=== PATIENT | male | born 1955 | race Caucasian/White ===

== ENCOUNTER 2024-12-15 16:01 | Emergency (ER) | payer OTHER, SELFPAY ==
--- NOTE | 2024-12-15 16:47 | ED.GENMED ---
ED Provider Triage
<Alicia Murray PA-C - Last Filed: 12/15/24 16:48>
-
Patient seen by provider in Triage?: Seen in Triage
69-year-old male history of MS in remission, hypertension, hyperlipidemia presents for URI symptoms with a cough, not feeling well for the last 4 days. Started while patient was in [place], he went to urgent care, had a negative chest x-ray and
negative flu and COVID test. That evening he flew home and over night he had nausea vomiting and diarrhea. He has continued to have episodes of diarrhea since then and cannot keep anything in, when he drinks liquids it comes out about 5 minutes
later as diarrhea. Patient is having some pain in his right abdomen with a cough, his cough is significantly worse than it was, he saw his family doctor and was sent over to evaluate for pneumonia. Patient has not been on antibiotics recently or
had a history of C. difficile. He has not had a fever but he has felt a little confused
A medical screening examination has been initiated by a qualified medical provider. Based on the assessment performed at this time, it has been determined that an emergent medical condition may exist and the patient has been informed that further
medical evaluation and possible additional diagnostic testing may be needed.
HPI: This is a medical evaluation conducted in person to initiate diagnostic evaluation and provide initial therapeutics. Please see further documentation by the treating clinician.
GENERAL: Alert , in no apparent distress
ENT: No visible abnormalities
LUNGS: No acute respiratory distress, spastic cough, end expiratory wheezing with the cough, prolonged expiration, no respiratory distress
NEUROLOGICAL: Alert and oriented
SKIN: Skin intact. No visible changes.
MUSCULOSKELETAL: Moving extremities normally
PSYCH: Normal and appropriate interaction.
History of Present Illness
<Alicia Murray PA-C - Last Filed: 12/15/24 16:48>
General
Chief Complaint: Cough
Time Seen by Provider: 12/15/24 18:48
<Yudi Flores DO - Last Filed: 12/16/24 03:11>
History of Present Illness
History of Present Illness:
69-year-old male history of MS in remission, CAD, hypertension, hyperlipidemia presenting with productive cough, shortness of breath, nausea, vomiting, diarrhea for the past few days. Patient states that he initially started having cough on Thursday
12/11. Patient states he was seen in urgent care we had negative chest x-ray, COVID, and flu. Patient states that he was in [place] at the time and came back to [place] Tuesday 12/12. Patient states that Thursday night developed nausea, vomiting
and diarrhea. Patient denies fever or chest pain. Patient states that his partner has now developed a cough. Patient states that he had a home flu test yesterday that was positive. Patient denies any lung issues. Patient states that he was seen
by his PCP today who recommended come to the emergency department rule out dehydration.
Past History
<Alicia Murray PA-C - Last Filed: 12/15/24 16:48>
Past History
ED Past Medical History: CAD, HTN and Other (Multiple Sclerosis)
ED Past Surgical History: None, Appendectomy, Cardiac (stents X 2) and Other (Nasal surgery, Left vein stripping)
Social History
Tobacco: Non-smoker
Alcohol: Daily (Wine 2 glasses)
Drug: None
Personal: Single
Living: alone
Phy Exam
<Yudi Flores DO - Last Filed: 12/16/24 03:11>
Physical Exam
Physical Exam:
General: Alert, no acute distress
Head: NCAT
Eyes: clear conjunctiva
Neck: supple
Cardiac: regular rate and rhythm, no murmur
Lungs: clear to auscultation bilaterally. No wheezes, rales, or rhonchi. Speaking full unlabored sentences. No respiratory distress.
Abdomen: soft, nondistended nontender. No rebound or guarding.
MSK: no lower extremity edema bilaterally. No deformity
Skin: warm, dry
Neuro: Alert and oriented x3. no focal deficits
Course
<Alicia Murray PA-C - Last Filed: 12/15/24 16:48>
Orders/Labs/Results
Orders:
Orders
12/15/24 16:45
CR Chest - 2 Views Urgent
Comment:
Reason For Exam: cough
12/15/24 16:46
Electrocardiogram (*1) Urgent
Reason for Study: Fatigue / Weakness
EKG- Treatment ONCE
12/15/24 17:02
Complete Blood Count/With Diff Urgent
Comprehensive Metabolic Panel Urgent
Direct Bilirubin Urgent
Comment: ADD ON
Lipase Urgent
Magnesium Urgent
12/15/24 18:48
Add On- LAB Urgent
Tests Added?: direct biliruibn
12/15/24 20:02
COVID-19 Antigen Urgent
Source: Nasal Swab
Influenza A+B Rapid Molecular Urgent
LUIS EDUARDO Source: Nasal Swab
Specimen Description:
12/15/24 20:28
0.9% Sodium Chloride 1000 ml [Nss] 1,000 ml IV BOLUS
Ondansetron Injectable [Zofran] 4 mg IV NOW STA
Abnormal Lab Results
12/15/24
17:02
MCV 94.8 H fL
(80.0-94.0)
MCH 33.3 H pg
(27.0-31.0)
Absolute Lymphs (auto) 0.9 L 10^3/uL
(1.2-3.4)
Absolute Monos (auto) 0.9 H 10^3/uL
(0.1-0.6)
Neutrophils % 76.4 H %
(42.2-75.2)
Lymphocytes % 11.9 L %
(20.5-51.1)
Monocytes % 11.2 H %
(1.7-9.3)
Sodium 130 L mmol/L
(135-145)
Potassium 3.4 L mmol/L
(3.5-5.1)
Chloride 93 L mmol/L
(98-107)
BUN 35 H mg/dl
(9-20)
Creatinine 1.4 H mg/dL
(0.7-1.3)
Glucose 115 H mg/dl
(70-99)
Total Bilirubin 1.7 H mg/dl
(0.2-1.3)
12/15/24 17:02
12/15/24 17:02
Vital Signs
Initial and Last Documented VS:
Initial Vital Signs
Temp Pulse Resp Pulse Ox
98.4 F 89 20 95
12/15/24 16:42 12/15/24 16:42 12/15/24 16:42 12/15/24 16:42
Last Documented Vital Signs
Temp Pulse Resp BP Pulse Ox
98.8 F 78 17 112/71 94
12/15/24 20:05 12/15/24 23:17 12/15/24 23:17 12/15/24 23:17 12/15/24 23:17
<Yudi Flores, DO - Last Filed: 12/16/24 03:11>
Orders/Labs/Results
Orders:
Orders
12/15/24 16:45
CR Chest - 2 Views Urgent
Comment:
Reason For Exam: cough
12/15/24 16:46
Electrocardiogram (*1) Urgent
Reason for Study: Fatigue / Weakness
EKG- Treatment ONCE
12/15/24 17:02
Complete Blood Count/With Diff Urgent
Comprehensive Metabolic Panel Urgent
Direct Bilirubin Urgent
Comment: ADD ON
Lipase Urgent
Magnesium Urgent
12/15/24 18:48
Add On- LAB Urgent
Tests Added?: direct biliruibn
12/15/24 20:02
COVID-19 Antigen Urgent
Source: Nasal Swab
Influenza A+B Rapid Molecular Urgent
LUIS EDUARDO Source: Nasal Swab
Specimen Description:
12/15/24 20:28
0.9% Sodium Chloride 1000 ml [Nss] 1,000 ml IV BOLUS
Ondansetron Injectable [Zofran] 4 mg IV NOW STA
Abnormal Lab Results
12/15/24
17:02
MCV 94.8 H fL
(80.0-94.0)
MCH 33.3 H pg
(27.0-31.0)
Absolute Lymphs (auto) 0.9 L 10^3/uL
(1.2-3.4)
Absolute Monos (auto) 0.9 H 10^3/uL
(0.1-0.6)
Neutrophils % 76.4 H %
(42.2-75.2)
Lymphocytes % 11.9 L %
(20.5-51.1)
Monocytes % 11.2 H %
(1.7-9.3)
Sodium 130 L mmol/L
(135-145)
Potassium 3.4 L mmol/L
(3.5-5.1)
Chloride 93 L mmol/L
(98-107)
BUN 35 H mg/dl
(9-20)
Creatinine 1.4 H mg/dL
(0.7-1.3)
Glucose 115 H mg/dl
(70-99)
Total Bilirubin 1.7 H mg/dl
(0.2-1.3)
12/15/24 17:02
12/15/24 17:02
Vital Signs
Initial and Last Documented VS:
Initial Vital Signs
Temp Pulse Resp Pulse Ox
98.4 F 89 20 95
02/27/25 16:42 12/15/24 16:42 12/15/24 16:42 12/15/24 16:42
Last Documented Vital Signs
Temp Pulse Resp BP Pulse Ox
98.8 F 78 17 112/71 94
12/15/24 20:05 12/15/24 23:17 12/15/24 23:17 12/15/24 23:17 12/15/24 23:17
<Yudi Flores DO - Last Filed: 12/16/24 03:11>
MDM/Problems Addressed
Differential Diagnosis Includes:
Pneumonia, viral infection, STEFANY, electrolyte abnormality, norovirus, C. difficile
MDM/Problems Addressed:
Results reviewed. WBC 7.8. Creatinine 1.4 (baseline 1), hyponatremia at 130 suspect due to poor p.o. intake. Chest x-ray clear with no focal infiltrate or consolidation. Influenza a positive. EKG shows sinus rhythm at 84 bpm with [place] 154 QTc 465
no acute ischemic changes. Discussed results with patient at bedside. SpO2 within normal limits. Stable for discharge home with PCP follow-up. Will not prescribe Tamiflu given patient already has nausea/vomiting/diarrhea, symptoms onset >48
hours ago.
ED Attending Note
<Alicia Murray PA-C - Last Filed: 12/15/24 16:48>
-
Portions of this chart may have been created with voice recognition software.� Occasional wrong word or��sound alike� substitutions may have occurred due to the inherent limitations of voice recognition software.
Discharge Plan
Departure
Patient Disposition: Home (Routine Discharge)
Date of Disposition: 12/15/24
Time of Disposition: 23:07
Patient with high blood pressure during this ER visit?: No
Discharge Problem:
Influenza
Instructions: Dehydration, Adult (DC), Flu in adults - Discharge instructions
Prescriptions:
New
ondansetron 4 mg tablet,disintegrating
4 mg PO Q8H PRN (Reason: nausea and vomiting) 5 Days Qty: 14 0RF
No Action
atorvastatin 80 MG tablet
80 mg PO QPM
metoprolol tartrate 50 MG tablet
50 mg PO HS
aspirin 81 MG tablet,chewable
81 mg PO DAILY
zolpidem 5 MG tablet
5 mg PO HSPRN PRN (Reason: insomina)
olmesartan [Benicar] 40 MG tablet
40 mg PO BID
ticagrelor [Brilinta] 90 MG tablet
90 mg PO BID
Referrals:
Neetu Mejia [Other]
Jonnathan Hummel PA-C [Family Provider] -
Activity Restrictions/Additional Instructions:
Follow-up with primary care doctor in 1 to 2 days
Take Zofran as needed for vomiting
Return to the emergency department for chest pain, difficulty breathing or new/worse symptoms
Interventions
Interventions:
*Risk Screen - Suicide Last Done: 12/15/24 16:42
*General Assessment Last Done: 12/15/24 19:52
*Neglect/Abuse Screening Last Done: 12/15/24 16:42
ED- Fall Risk Assessment Last Done: 12/15/24 19:52
*ED COVID-19 Vaccine History Last Done: 12/15/24 16:42
*Nursing Disposition Last Done: 12/15/24 23:36
YB-Uovkhw-Rstzkposrv Assessment Last Done: 12/15/24 19:52
ED- Pulmonary Assessment Last Done: 12/15/24 19:52
Discharge Date and Time
Discharge Date/Time: 12/15/24 23:37
Print Language: UKRAINIAN
[2024-12-15 17:09] LABS: % Basophils 0.1 % (0-2); % Immature Granulocytes 0.4 % (0-0.5); % Lymphocytes 11.9 % (20.5-51.1); % Monocytes 11.2 % (1.7-9.3); % Neutrophils 76.4 % (42.2-75.2); Absolute Lymphocytes 0.9 10^3/uL (1.2-3.4); Absolute Monocytes 0.9 10^3/uL (0.1-0.6); Absolute Neutrophils 5.9 10^3/uL (1.4-6.5); Hemoglobin 16.5 g/dL (13.0-18.0); Mean Corp Hgb Conc. 35.1 g/dL (33.0-37.0); Mean Corpuscular Hgb 33.3 pg (27.0-31.0); Mean Corpuscular Volume 94.8 fL (80.0-94.0); Mean Platelet Volume 9.6 fL (7.4-10.4); Nucleated Red Blood Cells % 0 % (-); Platelet Count 148 10^3/uL (130-400); Red Blood Cell Count 4.96 10^6/uL (4.70-6.10); Red Cell Dist. Width 12.7 % (11.5-14.5); White Blood Cell Count 7.8 10^3/uL (4.8-10.8)
[2024-12-15 17:33] LABS: ALT (SGPT) 42 U/L (0-50); AST (SGOT) 53 U/L (17-59); Albumin 4.1 g/dl (3.5-5.0); Alkaline Phosphatase 79 U/L (38-126); Blood Urea Nitrogen 35 mg/dl (9-20); Calcium 8.8 mg/dl (8.4-10.2); Carbon Dioxide 24 mmol/L (22-30); Chloride 93 mmol/L (98-107); Glucose 115 mg/dl (70-99); Lipase 210 U/L (23-300); Magnesium 2.3 mg/dl (1.6-2.3); Potassium 3.4 mmol/L (3.5-5.1); Sodium 130 mmol/L (135-145); Total Bilirubin 1.7 mg/dl (0.2-1.3); Total Protein 7.2 g/dl (6.3-8.2); eGFR 54.75
[2024-12-15 19:24] LABS: Direct Bilirubin 0.4 mg/dl (0.0-0.4)
[2024-12-15 19:52] VITALS: BMI 29.3
[2024-12-15 19:55] VITALS: BP 107/76
[2024-12-15 20:00] VITALS: BP 100/67
[2024-12-15 20:04] VITALS: BP 114/74
[2024-12-15 20:29] LABS: COVID-19 Antigen Negative (Negative)
[2024-12-15] MEDS: ZOFRAN 4 MG IV (20:56)
[2024-12-15] MEDS: NSS 1000 IV (20:56)
[2024-12-15 23:02] VITALS: BP 73/11
[2024-12-15 23:17] VITALS: BP 112/71
== END 2024-12-15 23:37 | disposition home or self-care (01) ==
LOC: EMR 16:01
PROVIDERS: Physician Assistant; Student in an Organized Health Care Education/Training Program; EMERGENCY PHYSICIAN Emergency Medicine; FAMILY PHYSICIAN Physician Assistant Medical
DX: J11.1 Influenza due to unidentified influenza virus with other respiratory manifestations (principal); I10 Essential (primary) hypertension; E78.00 Pure hypercholesterolemia, unspecified; G35 Multiple sclerosis; I25.10 Atherosclerotic heart disease of native coronary artery without angina pectoris; Z90.49 Acquired absence of other specified parts of digestive tract; Z95.5 Presence of coronary angioplasty implant and graft
CPT/HCPCS: 99283; 96374; 71046; 80053; 82248; 83690; 83735; 85025; 87502; 87811; 93005